=== PATIENT | female | born 1960 | race Caucasian/White ===

== ENCOUNTER 2017-03-21 16:00 | Outpatient (RCR) | payer OTHER | END 2017-06-16 | disposition home or self-care (01) | LOC: WSST | DX: R13.10 Dysphagia, unspecified (principal) ==

== ENCOUNTER → 2017-03-21 | Outpatient (CLI) | payer OTHER ==
[~2017-03-21] MED LIST: AMBIEN 10MG10 MG PO; AMBIEN CR 12.12.5 MG PO; ASPI325T6 PO; CELEBREX 200MG200 MG PO; CONTRAVE PO; CORGARD20 MG PO; FLEXERIL 1010 MG/TAB PO; NORCO 325 MG-51 TAB PO; NORCO 325 MG-7.1 TAB PO; NTHROIDNT65 PO; OCUVITE1 TA1 PO; PREVACID 30MG30 M1 PO; PRILOSEC 20MG20 MG PO; PYRIDIUM200 M1 PO; ULTRAM 50MG TAB50 MG PO; VITAMIND3 5000 PO
== END ==
LOC: COL.RAD 15:50
DX: R13.10 Dysphagia, unspecified (principal); R05 Cough

== ENCOUNTER → 2017-09-30 | Outpatient (REF) ==
[2017-09-30 10:03] LABS: THYROID STIMULATING HORMONE 4.13 uIU/mL (0.465-4.680)
== END ==
LOC: ZLAB.WCH 08:52
PROVIDERS: Family Medicine
DX: Z01.89 Encounter for other specified special examinations (principal)

== ENCOUNTER → 2019-01-23 | Outpatient (CLI) | payer BC, OTHER | LOC: COL.RAD 12:16 | DX: M47.812 Spondylosis without myelopathy or radiculopathy, cervical region (principal); R55 Syncope and collapse ==